=== PATIENT | male | born 1955 | race Caucasian/White ===

== ENCOUNTER 2019-01-06 16:28 | Inpatient (IN) | payer MEDICARE, MEDICAID ==
[~2019-01-06] VITALS: Ht 182.9 cm; Wt 91.2 kg
[2019-01-06] MEDS ORDERED: ARIP15TA3 PO (17:20)
[2019-01-06] MEDS ORDERED: BISA-79 PO (17:20)
[2019-01-06] MEDS ORDERED: LEVO112T5 PO (17:20)
[2019-01-06] MEDS ORDERED: AMLO5TAB9 PO (17:20)
[2019-01-06] MEDS ORDERED: CHOL100062 PO (17:20)
[2019-01-06] MEDS ORDERED: MAGN400O6 PO (17:20)
[2019-01-06] MEDS ORDERED: PSYL1PAC8 PO (17:20)
[2019-01-06] MEDS ORDERED: DOCU100T2 PO (17:20)
[2019-01-06] MEDS ORDERED: NA P133E RC (17:20)
[2019-01-06] MEDS ORDERED: VALP250S3 PO ×2 (17:20)
[2019-01-06] MEDS ORDERED: MULT-213 PO (17:20)
[2019-01-06] MEDS ORDERED: BENZ2TAB7 PO (17:20)
[2019-01-06] MEDS ORDERED: ACET325T53 PO (17:20)
[2019-01-06 17:26] LABS: BASOPHILS % (AUTO) 0.5 % (0.0-2.0); EOSINOPHILS # (AUTO) 0.1 K/uL (0.0-0.7); EOSINOPHILS % (AUTO) 0.9 % (0.0-7.0); HEMOGLOBIN 14.7 g/dL (12.5-16.3); LYMPHOCYTES # (AUTO) 1.8 K/uL (20.0-40.0); LYMPHOCYTES % (AUTO) 23.1 % (20.5-51.5); MEAN CORPUSCULAR HEMOGLOBIN 29.8 uug (23.8-33.4); MEAN CORPUSCULAR HGB CONC 34 g/dL (32.5-36.3); MEAN CORPUSCULAR VOLUME 89.1 fL (73.0-96.2); MONOCYTES # (AUTO) 0.4 K/uL (2.0-10.0); MONOCYTES % (AUTO) 5.1 % (0.0-11.0); NEUTROPHILS # (AUTO) 5.3 K/uL (1.8-8.9); NEUTROPHILS % (AUTO) 70.4 % (38.5-71.5); PLATELET COUNT (AUTO) 161 K/uL (152-348); RED BLOOD CELL COUNT(AUTO) 4.93 MIL/uL (4.06-5.63); WHITE BLOOD COUNT (AUTO) 7.6 K/uL (3.6-10.2)
[2019-01-06 17:33] LABS: CARBON DIOXIDE 30 mmol/L (21-32); CHLORIDE 103 mmol/L (98-107); CREATININE 0.7 mg/dL (0.6-1.3); GLUCOSE 81 mg/dL (74-106); UREA NITROGEN, BLOOD 18 mg/dL (7-18)
[2019-01-06 17:35] LABS: ETHANOL < 3 MG/DL (0-0)
[2019-01-06 17:39] LABS: ALANINE AMINOTRANSFERASE 18 U/L (16-63); ALKALINE PHOSPHATASE 69 U/L (50-136); ASPARTATE AMINOTRANSFERASE 22 U/L (15-37); BILIRUBIN,DIRECT 0.1 mg/dL (0.0-0.2); BILIRUBIN,TOTAL 0.5 mg/dL (0.2-1.0); TOTAL PROTEIN, SERUM 7.6 g/dL (6.4-8.2)
[2019-01-06 17:40] LABS: VALPROIC ACID < 3 ug/mL (50-100)
[2019-01-06 18:00] LABS: *BILIRUBIN,URIN NEGATIVE (NEGATIVE); *BLOOD, URINE NEGATIVE (NEGATIVE); *CLARITY,URINE CLEAR (CLEAR); *COLOR,URINE YELLOW (YELLOW); *KETONES,URINE TRACE (NEGATIVE); *UROBILINOGEN,URINE 0.2 E.U./dl (NORMAL); LEUKOCYTE ESTERASE ,URINE NEGATIVE (NEGATIVE); NITRITE, URINE NEGATIVE (NEGATIVE); PH,URINE 6.5 (5.0-8.0); UGLUCOSE NEGATIVE (NEGATIVE)
[2019-01-06 18:03] LABS: THYROID STIMULATING HORMONE 2.508 mIU/mL (0.358-3.740)
[2019-01-06 18:07] LABS: WBC,URINE 0-3 /HPF (0-3)
[2019-01-06 18:15] LABS: *AMPHETAMINE, URINE NEGATIVE (NEGATIVE); *BARBITURATE, URINE NEGATIVE (NEGATIVE); *CANNABINOID, URINE NEGATIVE (NEGATIVE); *COCCAINE, URINE NEGATIVE (NEGATIVE); *OPIATE, URINE NEGATIVE (NEGATIVE); *PHENCYCLIDINE SCREEN,URINE NEGATIVE (NEGATIVE)
[2019-01-06 18:30] VITALS: BP 142/74
[2019-01-06] MEDS ORDERED: FLEET ENEMA 133 ML BOTTLE RC PRN (19:00)
[2019-01-06] MEDS ORDERED: BISACODYL 5 MG TABLET.DR PO PRN (19:00)
[2019-01-06] MEDS ORDERED: MAGNESIUM HYDROXIDE 30 ML LIQUID UDC PO PRN ×2 (19:00→19:15)
[2019-01-06] MEDS ORDERED: ACETAMINOPHEN 325 MG TABLET PO PRN ×3 (19:00→19:15)
[2019-01-06] MEDS ORDERED: TEMAZEPAM 7.5 MG CAPSULE PO PRN (19:15)
[2019-01-06] MEDS ORDERED: LORAZEPAM 1 MG TABLET PO PRN (19:15)
[2019-01-06] MEDS ORDERED: MAG HYDROX/AL HYDROX/SIMETH 30 ML LIQUID UDC PO PRN (19:15)
[2019-01-06] MEDS ORDERED: QUETIAPINE FUMARATE 25 MG TABLET PO PRN (22:30)
[2019-01-06] MEDS ORDERED: ZOLPIDEM 5 MG TABLET PO PRN (22:30)
[2019-01-07 07:30] VITALS: BP 114/55
[2019-01-07] MEDS ORDERED: FLEET ENEMA 133 ML BOTTLE RC PRN (07:30)
[2019-01-07] MEDS: MULTIVIT, IRON, MIN NO. 8, FA TABLET PO SCH (08:55)
[2019-01-07] MEDS: CHOLECALCIFEROL 1,000 UNIT TABLET PO SCH (08:55)
[2019-01-07] MEDS: DOCUSATE SODIUM 100 MG CAPSULE PO SCH (08:55)
[2019-01-07] MEDS: AMLODIPINE 5 MG TABLET PO SCH (08:56)
[2019-01-07] MEDS: LEVOTHYROXINE SODIUM 112 MCG TABLET PO SCH (08:56)
[2019-01-07] MEDS: PSYLLIUM SEED PACKET PO SCH ×2 (08:56→17:20)
[2019-01-07] MEDS ORDERED: DOCUSATE SODIUM PO SCH (09:00)
[2019-01-07] MEDS ORDERED: BENZTROPINE MESYLATE 1 MG TABLET PO SCH ×2 (09:00)
[2019-01-07] MEDS ORDERED: Medication Not On Formulary EA (Psyllium Husk (with Sugar) (Metamucil Packet) 3.4 GM) PO SCH (09:00)
[2019-01-07] MEDS ORDERED: Medication Not On Formulary EA (Multivitamins W-Minerals (Multivitamin With Minerals) 1 PO SCH (09:00)
[2019-01-07 16:00] VITALS: BP 107/78
[2019-01-07 20:10] VITALS: BP 136/71
[2019-01-07] MEDS: risperiDONE 0.5 MG TABLET PO SCH (22:00)
[2019-01-08] MEDS: LEVOTHYROXINE SODIUM 112 MCG TABLET PO SCH (07:13)
[2019-01-08 07:30] VITALS: BP 106/60
[2019-01-08] MEDS: OXCARBAZEPINE 150 MG TABLET PO SCH ×2 (08:28→18:01)
[2019-01-08] MEDS: DOCUSATE SODIUM 100 MG CAPSULE PO SCH (08:28)
[2019-01-08] MEDS: risperiDONE 0.5 MG TABLET PO SCH (08:28)
[2019-01-08] MEDS: MULTIVIT, IRON, MIN NO. 8, FA TABLET PO SCH (08:28)
[2019-01-08] MEDS: CHOLECALCIFEROL 1,000 UNIT TABLET PO SCH (08:28)
[2019-01-08] MEDS: AMLODIPINE 5 MG TABLET PO SCH (08:29)
[2019-01-08] MEDS: PSYLLIUM SEED PACKET PO SCH ×2 (08:29→18:01)
[2019-01-08 16:00] VITALS: BP 112/62
[2019-01-08 19:48] VITALS: BP 108/55
[2019-01-08] MEDS: risperiDONE 1 MG TABLET PO SCH (20:19)
[2019-01-08] MEDS ORDERED: risperiDONE 0.5 MG TABLET PO SCH (21:00)
[2019-01-09] MEDS: LEVOTHYROXINE SODIUM 112 MCG TABLET PO SCH (06:08)
[2019-01-09 07:30] VITALS: BP 123/58
[2019-01-09] MEDS: CHOLECALCIFEROL 1,000 UNIT TABLET PO SCH (08:36)
[2019-01-09] MEDS: DOCUSATE SODIUM 100 MG CAPSULE PO SCH (08:36)
[2019-01-09] MEDS: PSYLLIUM SEED PACKET PO SCH ×2 (08:37→16:19)
[2019-01-09] MEDS: AMLODIPINE 5 MG TABLET PO SCH (08:37)
[2019-01-09] MEDS: MULTIVIT, IRON, MIN NO. 8, FA TABLET PO SCH (08:38)
[2019-01-09] MEDS: risperiDONE 1 MG TABLET PO SCH ×2 (08:38→20:12)
[2019-01-09] MEDS: OXCARBAZEPINE 150 MG TABLET PO SCH ×3 (08:38→16:19)
[2019-01-09] MEDS ORDERED: Z GUARD REMEDY PASTE 57 GM TUBE TOP PRN (15:15)
[2019-01-09 16:00] VITALS: BP 117/71
[2019-01-09 20:10] VITALS: BP 123/74
[2019-01-10] MEDS: LEVOTHYROXINE SODIUM 112 MCG TABLET PO SCH (06:43)
[2019-01-10 07:30] VITALS: BP 115/64
[2019-01-10] MEDS: risperiDONE 1 MG TABLET PO SCH (08:22)
[2019-01-10] MEDS: DOCUSATE SODIUM 100 MG CAPSULE PO SCH (08:22)
[2019-01-10] MEDS: CHOLECALCIFEROL 1,000 UNIT TABLET PO SCH (08:22)
[2019-01-10] MEDS: MULTIVIT, IRON, MIN NO. 8, FA TABLET PO SCH (08:22)
[2019-01-10] MEDS: OXCARBAZEPINE 150 MG TABLET PO SCH ×3 (08:22→17:10)
[2019-01-10] MEDS: AMLODIPINE 5 MG TABLET PO SCH (08:23)
[2019-01-10] MEDS: PSYLLIUM SEED PACKET PO SCH ×2 (08:23→17:00)
[2019-01-10 16:00] VITALS: BP 125/71
[2019-01-10 20:00] VITALS: BP 130/64
[2019-01-10] MEDS: risperiDONE 2 MG TABLET PO SCH (20:18)
[2019-01-11] MEDS: LEVOTHYROXINE SODIUM 112 MCG TABLET PO SCH (06:26)
[2019-01-11 07:30] VITALS: BP 110/65
[2019-01-11] MEDS: CHOLECALCIFEROL 1,000 UNIT TABLET PO SCH (08:13)
[2019-01-11] MEDS: OXCARBAZEPINE 150 MG TABLET PO SCH ×4 (08:13→20:18)
[2019-01-11] MEDS: MULTIVIT, IRON, MIN NO. 8, FA TABLET PO SCH (08:13)
[2019-01-11] MEDS: AMLODIPINE 5 MG TABLET PO SCH (08:14)
[2019-01-11] MEDS: DOCUSATE SODIUM 100 MG CAPSULE PO SCH (08:14)
[2019-01-11] MEDS: risperiDONE 1 MG TABLET PO SCH (08:14)
[2019-01-11] MEDS: PSYLLIUM SEED PACKET PO SCH ×2 (08:15→16:37)
[2019-01-11 16:04] VITALS: BP 144/75
[2019-01-11 20:05] VITALS: BP 112/68
[2019-01-11] MEDS: risperiDONE 2 MG TABLET PO SCH (20:18)
[2019-01-12] MEDS: LEVOTHYROXINE SODIUM 112 MCG TABLET PO SCH (06:07)
[2019-01-12 07:30] VITALS: BP 116/69
[2019-01-12] MEDS: CHOLECALCIFEROL 1,000 UNIT TABLET PO SCH (08:30)
[2019-01-12] MEDS: MULTIVIT, IRON, MIN NO. 8, FA TABLET PO SCH (08:30)
[2019-01-12] MEDS: DOCUSATE SODIUM 100 MG CAPSULE PO SCH (08:30)
[2019-01-12] MEDS: risperiDONE 1 MG TABLET PO SCH (08:31)
[2019-01-12] MEDS: AMLODIPINE 5 MG TABLET PO SCH (08:31)
[2019-01-12] MEDS: OXCARBAZEPINE 150 MG TABLET PO SCH ×2 (08:31→20:36)
[2019-01-12] MEDS: PSYLLIUM SEED PACKET PO SCH ×2 (08:32→17:00)
[2019-01-12] MEDS: OXCARBAZEPINE 300 MG TABLET PO SCH (12:30)
[2019-01-12 15:31] VITALS: BP 127/74
[2019-01-12 20:03] VITALS: BP 109/62
[2019-01-12] MEDS: risperiDONE 2 MG TABLET PO SCH (20:36)
[2019-01-12] MEDS ORDERED: ENOXAPARIN SODIUM 40 MG/0.4 ML DISP.SYRIN SQ SCH (21:00)
[2019-01-13] MEDS: LEVOTHYROXINE SODIUM 112 MCG TABLET PO SCH (06:27)
[2019-01-13 07:30] VITALS: BP 119/66
[2019-01-13] MEDS: MULTIVIT, IRON, MIN NO. 8, FA TABLET PO SCH (08:35)
[2019-01-13] MEDS: OXCARBAZEPINE 150 MG TABLET PO SCH (08:35)
[2019-01-13] MEDS: risperiDONE 1 MG TABLET PO SCH (08:35)
[2019-01-13 08:36] VITALS: BP 119/66
[2019-01-13] MEDS: CHOLECALCIFEROL 1,000 UNIT TABLET PO SCH (08:36)
[2019-01-13] MEDS: AMLODIPINE 5 MG TABLET PO SCH (08:36)
[2019-01-13] MEDS: PSYLLIUM SEED PACKET PO SCH (08:37)
[2019-01-13] MEDS: DOCUSATE SODIUM 100 MG CAPSULE PO SCH (08:44)
[2019-01-13] MEDS: OXCARBAZEPINE 300 MG TABLET PO SCH (13:44)
== END 2019-01-13 14:45 | DRG 885 ==
LOC: ER 16:32 → GPS 17:55
PROVIDERS: ADMIT Psychiatry & Neurology Psychiatry; ATTEND Registered Nurse
DX: F25.9 Schizoaffective disorder, unspecified (principal); G93.49 Other encephalopathy; F03.90 Unspecified dementia, unspecified severity, without behavioral disturbance, psychotic disturbance, mood disturbance, and anxiety; E66.9 Obesity, unspecified; E03.9 Hypothyroidism, unspecified; I48.91 Unspecified atrial fibrillation; Z79.01 Long term (current) use of anticoagulants; Z79.890 Hormone replacement therapy; K21.9 Gastro-esophageal reflux disease without esophagitis; R26.2 Difficulty in walking, not elsewhere classified; K11.7 Disturbances of salivary secretion; Z91.14 Patient's other noncompliance with medication regimen; Z87.11 Personal history of peptic ulcer disease; F17.210 Nicotine dependence, cigarettes, uncomplicated; I10 Essential (primary) hypertension; F31.60 Bipolar disorder, current episode mixed, unspecified
CPT/HCPCS: 36415; 71045; 80164; 80307; 84443; 85025; 93005; 97112; A4663; C1758; G0480; J1650